=== PATIENT | male | born 1990 | race Caucasian/White ===

== ENCOUNTER 2022-10-10 18:40 | Emergency (ER) | payer OTHER ==
[~2022-10-10] VITALS: Ht 190.5 cm; Wt 129.8 kg
[2022-10-10 18:59] VITALS: BP 140/92; PULSE 74; RESP 16; TEMP 98.5; O2SAT 95
[2022-10-10 23:05] LABS: BASOPHILS % 0.6 % (0.0-2.0); EOSINOPHILS % 3.6 % (0.0-5.0); HEMATOCRIT. 44.4 % (42.0-52.0); HEMOGLOBIN. 15.3 g/dL (14.0-18.0); LYMPHOCYTES % 34.1 % (20.0-50.0); MEAN CORPUSCULAR HEMOGLOBIN 30.6 pg (28.0-32.0); MEAN CORPUSCULAR HGB CONC 34.5 g/dL (31.0-37.0); MEAN CORPUSCULAR VOLUME 88.6 fL (80.0-94.0); MEAN PLATELET VOLUME 7.3 fl (7.4-10.4); MONOCYTES % 7.6 % (2.0-8.0); NEUTROPHILS % 54.1 % (40.0-76.0); PLATELET 221 x1000/uL (130-400); RED BLOOD CELL COUNT 5.01 mill/uL (4.7-6.1); RED CELL DISTRIBUTION WIDTH 13.2 % (11.6-14.6); WHITE BLOOD COUNT 6.4 x1000/uL (4.5-11.0)
[2022-10-10 23:07] LABS: CHLORIDE 107 mEq/L (98-107); INDEX HEMOLYSI 1 (1-3); INDEX ICTERIC 1 (1-4); INDEX LIPEMIC 1 (1-3); POTASSIUM 3.9 mEq/L (3.5-5.1); SODIUM 140 mEq/L (136-145)
[2022-10-10 23:17] LABS: ALBUMIN 4.2 g/dL (3.4-5.0); CALCIUM 9.6 mg/dL (8.5-10.1); CARBON DIOXIDE 29 mEq/L (21-32); GLUCOSE 108 mg/dL (70-105); PROTEIN TOTAL 7.6 g/dL (6.0-8.3); UREA NITROGEN BLOOD 15 mg/dL (7-21)
[2022-10-10 23:18] LABS: ALANINE AMINOTRANSFERASE 43 IU/L (13-61); ASPARTATE AMINOTRANSFERASE 25 IU/L (15-37); BILIRUBIN TOTAL 0.6 mg/dL (0.1-1.0)
== END 2022-10-11 00:03 | disposition home or self-care (01) ==
LOC: ER 18:40
DX: J02.9 Acute pharyngitis, unspecified (principal); M54.2 Cervicalgia
CPT/HCPCS: 36415; 70490; 80053; 85025; 87070; 87430; 99284